=== PATIENT | female | born 1945 ===

== ENCOUNTER 2025-03-25 05:18 | Day surgery (SDC) | payer OTHER ==
[~2025-03-25 05:18] MED LIST: ATORVASTATIN CA10 MG PO; FARXIGA5 MG PO; JANUVIA25 MG PO; LOTREL 10-20 M1 EACH PO
[2025-03-25] MEDS ORDERED: CEFAZOLIN SODIUM 1,000 MG VIAL ONE (09:56)
[2025-03-25] MEDS ORDERED: GENTAMICIN SULFATE 40 MG/ML VIAL ONE (10:07)
[2025-03-25] MEDS ORDERED: MACROBID 100 M100 MG PO (11:43)
[2025-03-25] MEDS ORDERED: TRAM1TAB98 PO (11:44)
[2025-03-25] MEDS ORDERED: MORPHINE SULFATE 4 MG/ML VIAL IV ONE (13:35)
== END 2025-03-25 14:55 | disposition home or self-care (01) ==
LOC: CIR.AMB 05:18
PROVIDERS: ATTEND Obstetrics & Gynecology Gynecology
DX: N81.6 Rectocele (principal); N81.5 Vaginal enterocele; N81.11 Cystocele, midline